=== PATIENT | female | born 1970 | race Caucasian/White ===

== ENCOUNTER 2018-03-11 01:01 | Observation (INO) ==
[2018-03-11] MEDS ORDERED: DIPH/TET/ACEL PERT BOOSTER VACCINE 0.5 ML VIAL IM ONE (01:29)
[2018-03-11 02:07] LABS: Basophils # 0.1 10*3/uL (0.0-0.2); Basophils % 0.5 % (0.0-0.8); Eosinophils # 0.2 10*3/uL (0.0-0.87); Eosinophils % 1.3 % (0.00-10.9); Hematocrit 39.6 VOL% (35.7-47.0); Hemoglobin 12.5 GM/DL (12.0-16.0); Immature Granulocytes % 0.9 %; Immature Granulocytes Absolute 0.12 #; Lymphocytes # 1.8 10*3/uL (1.4-4.0); Lymphocytes % 14.2 % (21.3-54.2); Mean Corpuscular HGB Conc 31.6 GM/DL (32-36); Mean Corpuscular Hemoglobin 28 PG (27-34); Mean Platelet Volume 9.2 FL (9.6-12.0); Monocytes # 0.8 10*3/uL (0.11-0.8); Monocytes % 6.5 % (1.7-12.7); Neutrophils # 9.9 10*3/uL (1.4-7.4); Neutrophils % 76.6 % (38.7-73.9); Platelet Count 345 T/CUMM (130-400); Red Cell Distribution Width 13.1 % (9.3-17.3); White Blood Count 12.9 T/CUMM (4-12)
[2018-03-11 02:26] LABS: Lactic Acid 2.6 MMOL/L (0.4-2.0)
[2018-03-11 02:28] LABS: Alanine Aminotransferase 36 U/L (13-56); Albumin 3.8 G/DL (3.4-5.0); Alkaline Phosphatase 101 U/L (45-117); Aspartate Amino Transferase 36 U/L (0-37); Blood Urea Nitrogen 13 MG/DL (7-18); Calcium 8.4 MG/DL (8.5-10.1); Glucose 109 MG/DL (74-106); Osmolality,Calculated 273.8 MOS/KG (273-304); Potassium 3.5 MMOL/L (3.5-5.1); Sodium 137 MMOL/L (136-145); Total Protein 7.8 G/DL (6.4-8.3)
[2018-03-11 02:41] LABS: Apearance,Urine CLEAR (Clear); Bacteria,Urine Occasional /HPF (Few); Bilirubin,Urine Negative (Negative); Blood, Urine Negative (Negative); Glucose,Urine (UA) Negative (Negative); Hyaline Casts,Urine 3 /LPF (0-3); Ketones,Urine Negative (Negative); Mucus,Urine Occasional /LPF (Occasional); Nitrite,Urine Negative (Negative); Protein,Urine Negative; RBC,Urine 2 /HPF (0-4); Squamous Epithelial Cell,Urine Occasional /HPF (0-10); Urine Color Straw (Yellow); Urine Specific Gravity 1.011 (1.001-1.035); Urine Urobilinogen < 2.0 EU/DL (0.2-1.0); WBC,Urine 3 /HPF (0-6)
[2018-03-11] MEDS ORDERED: MORPHINE 4 MG/1 ML VIAL IV STA (03:15)
[2018-03-11] MEDS ORDERED: ONDANSETRON 4 MG/2 ML VIAL IV STA (03:16)
[2018-03-11 03:51] LABS: Barbiturates Screen,Urine Negative (Negative); Benzodiazepines Screen,Urine Negative (Negative); Cannabinoid Screen,Urine Negative (Negative); Opiate Screen,Urine Negative (Negative); Phencyclidine Screen,Urine Negative (Negative)
[2018-03-11] MEDS ORDERED: HYDROmorphone 2 MG/1 ML VIAL IV PRN (03:58)
[2018-03-11] MEDS ORDERED: ONDANSETRON 4 MG/2 ML VIAL IV PRN (03:58)
[2018-03-11] MEDS ORDERED: DEXTROSE 5% LACTATED RINGERS 1,000 ML IV SCH (04:00)
[2018-03-11] MEDS ORDERED: PANTOPRAZOLE 40 MG VIAL IV SCH (09:00)
[2018-03-11 12:28] VITALS: BP 102/69
== END 2018-03-11 15:51 | disposition home or self-care (01) ==
LOC: EDBD → EDUNIT# → N.ED 01:01 → N.EDINP 01:01 → N.3E 04:55
PROVIDERS: ADMIT Surgery; ATTEND Surgery